=== PATIENT | male | born 1965 | race Caucasian/White ===

== ENCOUNTER 2017-01-20 12:35 | Inpatient (IN) | payer MEDICARE ==
--- NOTE | 2017-01-20 12:48 | ER Document Report ---
ED Medical Screen (RME) - General Chief Complaint: S/S of Possible Stroke Stated Complaint: STROKE SYMPTOMS Time Seen by Provider: 01/20/17 12:46 Notes: Patient states that he has had 6 previous strokes. He states that these have left him with fine motor deficits on the left side. He states starting approximately 2 days ago he has had headaches and dizziness. He is also felt that his weakness on the left has increased. he does take an aspirin per day. Denies any other chronic medical conditions except stroke, high chol. TRAVEL OUTSIDE OF THE [place] IN LAST 30 DAYS: No - Related Data Allergies/Adverse Reactions: No Known Allergies Allergy (Verified 01/20/17 12:37) Past Medical History Renal/ Medical History: Denies: Hx Peritoneal Dialysis Physical Exam - Vital signs Vitals: Temp Pulse Resp BP Pulse Ox 98.5 F 85 16 195/104 H 96 01/20/17 12:37 01/20/17 12:37 01/20/17 12:37 01/20/17 12:37 01/20/17 12:37 Course - Vital Signs Vital signs: Temp Pulse Resp BP Pulse Ox 98.5 F 85 16 195/104 H 96 01/20/17 12:37 01/20/17 12:37 01/20/17 12:37 01/20/17 12:37 01/20/17 12:37
--- NOTE | 2017-01-20 13:14 | RADIOLOGY REPORT (SQ) ---
EXAM DESCRIPTION: CT HEAD WITHOUT COMPLETED DATE/TIME: 01/20/2017 12:58 pm REASON FOR STUDY: worsening left sided weakness COMPARISON: None. TECHNIQUE: Axial images acquired through the brain without intravenous contrast. Images reviewed wi th bone, brain and subdural windows. Images stored on PACS. All CT scanners at this facility use dose modulation, iterative reconstruction, and/or weight based d osing when appropriate to reduce radiation dose to as low as reasonably achievable (ALARA). [facility]: Dose Right [facility]: CareDose [facility]: Dose Right [facility]: Teradose 4D [facility]: [employer] RADIATION DOSE: Up-to-date CT equipment and radiation dose reduction techniques were employed. CTDIv ol: 64.6 mGy. DLP: 1163 mGy-cm. mGy. LIMITATIONS: None. FINDINGS: VENTRICLES: Normal size and contour. CEREBRUM: No masses. No hemorrhage. No midline shift. No evidence for acute infarction. Normal gra y/white matter differentiation. No areas of low density in the white matter. CEREBELLUM: No masses. No hemorrhage. No alteration of density. No evidence for acute infarction. EXTRAAXIAL SPACES: No fluid collections. No masses. There appears to be a small arachnoid cyst in t he posterior fossa on the left. ORBITS AND GLOBE: No intra- or extraconal masses. Normal contour of globe without masses. CALVARIUM: No fracture. PARANASAL SINUSES: No fluid or mucosal thickening. SOFT TISSUES: No mass or hematoma. OTHER: No other significant finding. IMPRESSION: NORMAL BRAIN CT WITHOUT CONTRAST. EVIDENCE OF ACUTE STROKE: NO. COMMENT: Quality ID # [id number]: Final reports with documentation of one or more dose reduction techniques (e.g., Automated exposure control, adjustment of the mA and/or kV according to patient size, use of iterative reconstruction technique) TECHNICAL DOCUMENTATION: JOB ID: [id number] 1996 [employer]- All Rights Reserved
[2017-01-20] MEDS ORDERED: HYDRALAZINE HCL 25 MG TABLET PO ONE (13:21)
[2017-01-20 13:22] LABS: ABSOLUTE EOSINOPHILS # (AUTO) 0.1 10^3/uL (0.0-0.6); ABSOLUTE LYMPHOCYTES (AUTO) 1.4 10^3/uL (0.5-4.7); ABSOLUTE MONOCYTES (AUTO) 0.5 10^3/uL (0.1-1.4); BASOPHILS % (AUTO) 0.7 % (0-2); EOSINOPHILS % (AUTO) 2.1 % (0-6); HEMATOCRIT 48.1 % (37.9-51.0); HEMOGLOBIN 17.2 g/dL (13.5-17.0); HGB HCT DIFFERENCE 3.5; LYMPHOCYTES % (AUTO) 23.2 % (13-45); MEAN CORPUSCULAR HEMOGLOBIN 32.2 pg (27.0-33.4); MEAN CORPUSCULAR HGB CONC 35.7 g/dL (32.0-36.0); MEAN CORPUSCULAR VOLUME 90 fl (80-97); MONOCYTES % (AUTO) 7.9 % (3-13); RED BLOOD COUNT 5.34 10^6/uL (4.35-5.55); RED CELL DISTRIBUTION WIDTH 12.7 % (11.5-14.0); SEGMENTED NEUTROPHILS % (AUTO) 66.1 % (42-78)
--- NOTE | 2017-01-20 13:42 | EKG REPORT ---
SEVERITY:- NORMAL ECG - SINUS RHYTHM : Confirmed by: Holger Moreland MD 20-Jan-2017 13:41:45
[2017-01-20 13:45] LABS: ALANINE AMINOTRANSFERASE 50 U/L (21-72); ALBUMIN 4.7 g/dL (3.5-5.0); ALKALINE PHOSPHATASE 68 U/L (38-126); ANION GAP 13 (5-19); ASPARTATE AMINO TRANSFERASE 23 U/L (17-59); BILIRUBIN,DIRECT 0.4 mg/dL (0.0-0.4); BILIRUBIN,TOTAL 0.7 mg/dL (0.2-1.3); BLOOD UREA NITROGEN 10 mg/dL (7-20); CARBON DIOXIDE 25 mmol/L (22-30); CHLORIDE 105 mmol/L (98-107); CREATININE RESULT 0.94 mg/dL (0.52-1.25); GLUCOSE 102 mg/dL (75-110); POTASSIUM 4.1 mmol/L (3.6-5.0); SODIUM 142.7 mmol/L (137-145); TOTAL PROTEIN 7.4 g/dL (6.3-8.2)
--- NOTE | 2017-01-20 15:09 | ER Document Report ---
ED Neuro Symptoms/Deficit - General Chief Complaint: S/S of Possible Stroke Stated Complaint: STROKE SYMPTOMS Time Seen by Provider: 01/20/17 12:46 Mode of Arrival: Ambulatory Information source: Patient Notes: Patient is a 51-year-old male who presents to the ER today with a history of 6 strokes with residual left-sided weakness to states that he started having left- sided weakness more so than usual with numbness to his left arm and left leg 3 days ago that worsened today. Patient denies any facial droop, facial numbness , headache, blurred vision or otherwise. Patient is on cholesterol medication, baby aspirin, but no blood pressure medication. Patient presents with a blood pressure of 195/106. He denies any chest pain or shortness of breath, nausea or vomiting. TRAVEL OUTSIDE OF THE [place] IN LAST 30 DAYS: No - Related Data Allergies/Adverse Reactions: No Known Allergies Allergy (Verified 01/20/17 12:37) Home Medications: Current Home Medications Aspirin [Ecotrin] 81 mg PO DAILY 01/20/17 [History] Lovastatin [Altoprev] 20 mg PO BID 01/20/17 [History] Multivitamin [Multivitamins] 1 each PO DAILY 01/20/17 [History] Ranitidine HCl 150 mg PO BID 01/20/17 [History] Past Medical History - General Information source: Patient - Social History Smoking Status: Current Every Day Smoker Chew tobacco use (# tins/day): No Frequency of alcohol use: 2 per day Drug Abuse: None Family History: Reviewed & Not Pertinent - Past Medical History Cardiac Medical History: Reports: Hx Hypercholesterolemia Renal/ Medical History: Denies: Hx Peritoneal Dialysis GI Medical History: Reports: Hx Gastroesophageal Reflux Disease - Immunizations Hx Diphtheria, Pertussis, Tetanus Vaccination: No Review of Systems - Review of Systems Constitutional: No symptoms reported EENT: No symptoms reported Cardiovascular: No symptoms reported Respiratory: No symptoms reported Gastrointestinal: No symptoms reported Genitourinary: No symptoms reported Male Genitourinary: No symptoms reported Musculoskeletal: No symptoms reported Skin: No symptoms reported Hematologic/Lymphatic: No symptoms reported Neurological/Psychological: See HPI Physical Exam - Vital signs Vitals: Temp Pulse Resp BP Pulse Ox 98.5 F 85 16 195/104 H 96 01/20/17 12:37 01/20/17 12:37 01/20/17 12:37 01/20/17 12:37 01/20/17 12:37 - Notes Notes: PHYSICAL EXAMINATION: GENERAL: Well-appearing and in no acute distress. HEAD: Atraumatic, normocephalic. EYES: Pupils equal round and reactive to light, extraocular movements intact, sclera anicteric, conjunctiva are normal. NECK: Normal range of motion, supple without lymphadenopathy LUNGS: CTAB and equal. No wheezes rales or rhonchi. HEART: Regular rate and rhythm without murmurs EXTREMITIES: Normal range of motion, no pitting edema. No cyanosis. NEUROLOGICAL: Cranial nerves grossly intact. mildly decreased motor function to left arm and leg, no facial droop, good sensory to bilateral extremities PSYCH: Normal mood, normal affect. SKIN: Warm, Dry, normal turgor, no rashes or lesions noted Course - Re-evaluation Re-evalutation: 01/20/17 15:32 CT of the head is negative for any acute pathology, lab work is unremarkable today, patient's blood pressure has reduced to 166 systolically with oral hydralazine here in the emergency department. I did admit patient to Dr. Chavez, for further workup as he has been multiple years since patient has had an MRI, echo or ultrasound of the carotids. NIH is 0. He is not a candidate for TPA. 01/21/17 08:40 01/21/17 08:40 - Vital Signs Vital signs: Temp Pulse Resp BP Pulse Ox 98.5 F 70 20 166/108 H 100 01/20/17 12:37 01/20/17 15:06 01/20/17 15:06 01/20/17 15:06 01/20/17 15:06 - Laboratory Result Diagrams: 01/21/17 04:36 01/21/17 04:36 Laboratory results interpreted by me: 01/20/17 01/20/17 13:03 13:10 Hgb 17.2 H POC Glucose 114 H ED Alteplase Inc/Exc Criteria - Date/Time patient last known well: Date/Time: 3 days ago - Date/Time patient arrived in ED: _: 13:07 - Inclusion Criteria: 1: Patient presented to ED within 3 hours of acute ischemic stroke symptom onset ? -: No 2: Did baseline CT exclude intracranial hemorrhage and/or other risk factors? -: Yes 3: Is the age of the patient 18 years of age or greater? -: Yes : If any of the above questions are answered "NO" then stop, patient is not a candidate for Alteplase, : If all of the above questions are answered "YES" then continue with Exclusion Criteria. - Exclusion Criteria: 1: Is there evidence of intracranial hemorrhage on baseline CT? 2: Is there suspicion of subarachnoid hemorrhage (even if CT negative)? 3: Is there a history of serious head trauma, recent previous stroke or WV within 3 months? 4: Does the patient have a clinical presentation consistent with WV or post-WV pericarditis? 5: Is there history of intracranial hemorrhage? 6: On repeated measurement is Systolic BP greater than 185mmHg or Diastolic BP greater that 110 mmHg and is aggressive treatment needed to reduce blood pressure to these limits (e.g. constant infusion of an anti-hypertensive)? 7: Did the patient awake with stroke symptoms? 8: Has the patient had a lumbar puncture or an arterial puncture at a non- compressile site within 7 days? 9: With in the last 14 days did the patient have surgery or major trauma? 10: Is the patient or less than 2 weeks? 11: Was there any active bleeding or acute trauma? 12: Does the patient have intracranial neoplasm, arteriovenous malformation or aneurysm? 13: Does the patient have abnormal glucose (less than 50 or greater than 400mg/ dl)? Record glucose in Comment. 14: Patient has rapidly improving symptoms at the time Alteplase is to be Administered. 15: Does the patient have any risks for bleeding, including but not limited to: a.: Current use of Coumadin with PT greater than 15 seconds or INR greater than 1.7. b.: Current use of Pradaxa (Dabigatran). c.: Heparin administereed within the past 48 hours and PTT elevated. d.: Platelet count less than 100,000/mm. e.: Major surgery or serious trauma within 14 days. f.: Gastrointestinal or gynecological urinary bleeding within 14 days. g.: Myocardial Infarction (WV) within 3 months. : If the answer to any of the above questions is "YES" then stop, the patient is not a candidate for Alteplase. : If the answer to all of the above questions is "NO" then the patient may be eligible for the Administration of Alteplase. : If the patient is noted to have seizure activity at onset of Stroke symptoms; Consult Neurologist for further evaluation. - The patient is: -: Included and is eligible to receive Alteplase. *Initiate bed placement at higher level of care* Reviewd risks & benefits of thrombolytic therapy: I have reviewed the risks and benefits of thrombolytic therapy with the patient and/or his/her family. -: Excluded and not eligible to receive Alteplase for the above exclusions. -: Excluded and not eligible to receive Alteplase for other reasons (specify in comments): - Diagnosis of TIA: -: Patient presented with transient symptoms that are now resolved and no other neurologic findings are currently present. List symptoms in comments. -: No -: Patient is NOT a candidate for tPA. -: Yes -: ____(put name in comment) has been consulted for admission and continued evaluation of risk factor assessment. Comment: Dr. Chavez NIH Stroke Scale - NIH Stroke Scale When completed:: Protocol *: 1. NIH scale should be completed with appropriate accompanying assessment tools. *: 2. The NIH should reflect what the patient is capable of doing and should not be coached by the clinician. 1a. Level of Consciousness: 0=Alert;keenly responsive -: 1=Drowsy -: 2=Obtunded -: 3=Coma/unresponsive or reflex to noxious stimuli. 1a. Responses: 0 1b. Orientation Questions: a. What month is it? -: b. How old are you? -: 0=Answers both questions correctly. -: 1=Answers one question correctly or patient is intubated or has orotracheal trauma. -: 2=Answers neither question correctly. 1b. Responses: 0 1c. Response to commands: a. Open and close eyes? -: b. Supervisor Model Making and release hand? -: Credit is given despite weakness. Demonstration of task is permitted. Substitute command if hands cannot be used. -: 0=Performs both tasks correctly -: 1=Performs one task correctly -: 2=Performs neither task correctly 1c. Responses: 0 2. Gaze: Establish eye contact and instruct patient to "Follow my finger" -: 0=Normal -: 1=Partial gaze palsy. Gaze is abnormal in one or both eyes, but where forced deviation or total gaze paresis is not present. -: 2=Forced deviation or total gaze paresis. 2. Responses: 0 3. Visual Reyes: Sees fingers in all four quadrants. -: 0=No visual loss. -: 1=Partial hemianopsia. -: 2=Complete hemianopsia. -: 3=Bilateral hemianopsia (including Cortical blindness) 3. Responses: 0 4. Facial Movement: Instruct patient to: -: a. Show me your teeth -: b. Raise your eyebrows -: c. Close your eyes -: d. Smile -: 0=Normal symmetrical movement -: 1=Minor paralysis (flattened nasolabial fold, asymmetry on smiling). -: 2=Partial paralysis (total or near total paralysis of lower face). -: 3=Complete paralysis of upper and lower face 4. Responses: 0 5. Motor functions (left arm): Alternate sides and extend each arm with palms down (90 degrees if sitting or 45 degrees for supine). -: 0=No drift;limb holds for full 10 seconds. -: 1=Drift; limb holds but drifts down before full 10 seconds, but does not hit bed. -: 2=Some effort against gravity; limb cannot get to or maintain position. -: 3=No effort against gravity; limb falls. -: 4=No movement. -: UN=Amputation, joint fusion, explain in comments. 5. Responses (left arm): 0 5. Motor Functions (right arm): Alternate sides and extend each arm with palms down (90 degrees if sitting or 45 degrees for supine). -: 0=No drift;limb holds for full 10 seconds. -: 1=Drift; limb holds but drifts down before full 10 seconds, but does not hit bed. -: 2=Some effort against gravity; limb cannot get to or maintain position. -: 3=No effort against gravity; limb falls. -: 4=No movement. -: UN=Amputation, joint fusion, explain in comments. 5. Responses (right arm): 0 6. Motor Functions (left leg): With patient lying supine, alternate sides and extend each leg (30 degrees always while supine). -: 0=No drift, leg holds position for full 5 seconds -: 1=Drift; leg falls before full 5 seconds but does not hit bed. -: 2=Some effort against gravity, leg falls to bed but some effort against gravity. -: 3=No effort against gravity, leg falls to bed immediately. -: 4=No movement. -: UN=Amputation, joint fusion; explain in comments. 6. Responses (left leg): 0 6. Motor Functions (right leg): With patient lying supine, alternate sides and extend each leg (30 degrees always while supine). -: 0=No drift, leg holds position for full 5 seconds -: 1=Drift; leg falls before full 5 seconds but does not hit bed. -: 2=Some effort against gravity, leg falls to bed but some effort against gravity. -: 3=No effort against gravity, leg falls to bed immediately. -: 4=No movement. -: UN=Amputation, joint fusion; explain in comments. 6. Responses (right leg): 0 7. Limb Ataxia: With eyes open instruct patient to: -: a. "Touch your finger to your nose". -: b. "Touch your heel to your epps" -: 0=Absent -: 1=Present in one limb. -: 2=Present in two limbs. -: UN=Amputation or joint fusion; explain in comments. 7. Responses: 0 8. Sensory: Test sensation using pinprick or noxious stimuli. Test as many body parts as possible. -: 0=Normal;no sensory loss -: 1=Mile to moderate sensory loss (patient feels pin prick but is less sharp on affected side). -: 2=Severe or total sensory loss. 8. Responses: 0 9. Best Language: Instruct patient to: -: a. "Describe what you see in this picture." -: b. "Name the items in this picture." -: c. "Read these sentences." -: 0=No aphasia, normal -: 1=Mild to moderate aphasia. -: 2=Severe aphasia -: 3=Mute, global aphasia, no usable speech or auditory comprehension. 9. Responses: 0 10. Articulation, Dysarthia: Instruct patient to: -: "Read these words" or "Repeat these words" -: 0=Normal -: 1=Mild to moderate; patient may slur some words but can be understood without difficulty. -: 2=Severe; patients speech so slurred as to be unintelligible in the absence of dysphasia. -: UN=Intubated or other physical barrier, explain in comments. 10. Responses: 0 11. Extinction or inattention: 0=No abnormality -: 1= Visual, tactile, auditory, spatial, or personal inattention or extinction to bilateral simulation in one or the sensory modalities. -: 2=Profound francine-inattention or francine-inattention to more than one modality; does not recognize own hand. 11. Responses: 0 Total Score: 0 Discharge - Discharge Clinical Impression: Stroke-like symptoms Condition: Stable Disposition: ADMITTED INPATIENT Admitting Provider: Hospitalist Unit Admitted: Telemetry
[2017-01-20 15:11] LABS: PROTHROMBIN TIME 13.6 SEC (11.4-15.4)
[2017-01-20] MEDS ORDERED: ONDANSETRON 4 MG TAB.RAPDIS PO PRN (16:06)
[2017-01-20] MEDS ORDERED: ACETAMINOPHEN 325 MG TABLET PO PRN (16:06)
[2017-01-20] MEDS ORDERED: ASPIRIN 325 MG TABLET, ENT COATED PO ONE (16:06)
[2017-01-20] MEDS ORDERED: HYDRALAZINE HCL 50 MG TABLET PO PRN (16:15)
[2017-01-20] MEDS ORDERED: LORAZEPAM INJ 2 MG/1 ML VIAL IV PRN (16:23)
--- NOTE | 2017-01-20 16:44 | PDOC H&P ---
History of Present Illness Admission Date/PCP: 01/20/17 15:56 Patient complains of: Left-sided arm weakness. History of Present Illness: DAVEY GARDUNO is a 51 year old male presents to the emergency room with complaint of left-sided arm weakness. She states that he is trying to stop smoking. Patient states that on he noticed that he had worsening left upper extremity weakness. Patient states that he has had this symptom before when he was diagnosed with a stroke. Patient also states that he has been told in the past that he has a pinched nerve that could be causing the left arm weakness. Patient reports that he has multiple intolerances to blood pressure medication. Patient states if you put him on a blood medication he will experience side effects of that medicine. Patient states that he moved from [place] to live with his sister. Patient states that the only medication he takes is an aspirin and cholesterol medicine. Patient reports he does not have insurance and therefore needs medications that are on the $4 plan. Patient also reported that when he stands up he develops a headache and dizziness. Past Medical History Cardiac Medical History: Reports: Hyperlipidema Neurological Medical History: Reports: Ischemic CVA GI Medical History: Reports: Gastroesophageal Reflux Disease Social History Smoking Status: Current Every Day Smoker Family History Parental Family History Reviewed: Yes Children Family History Reviewed: Yes Sibling(s) Family History Reviewed.: Yes Medication/Allergy Home Medications: Aspirin [Ecotrin] 81 mg PO DAILY 01/20/17 Lovastatin [Altoprev] 20 mg PO BID 01/20/17 Multivitamin [Multivitamins] 1 each PO DAILY 01/20/17 Ranitidine HCl 150 mg PO BID 01/20/17 Allergies/Adverse Reactions: No Known Allergies Allergy (Verified 01/20/17 12:37) Review of Systems Constitutional: PRESENT: weakness Eyes: ABSENT: visual disturbances Ears: ABSENT: hearing changes Cardiovascular: ABSENT: chest pain, dyspnea on exertion, edema, orthropnea, palpitations Respiratory: ABSENT: cough, hemoptysis Gastrointestinal: ABSENT: abdominal pain, constipation, diarrhea, hematemesis, hematochezia, nausea, vomiting Genitourinary: ABSENT: dysuria, hematuria Musculoskeletal: ABSENT: joint swelling Integumentary: ABSENT: rash, wounds Neurological: PRESENT: dizziness, weakness Psychiatric: ABSENT: anxiety, depression, homidical ideation, suicidal ideation Endocrine: ABSENT: cold intolerance, heat intolerance, polydipsia, polyuria Hematologic/Lymphatic: ABSENT: easy bleeding, easy bruising Physical Exam Vital Signs: Temp Pulse Resp BP Pulse Ox 98.5 F 70 15 161/111 H 84 L 01/20/17 12:37 01/20/17 15:06 01/20/17 16:01 01/20/17 16:01 01/20/17 16:01 General appearance: PRESENT: no acute distress, well-developed, well-nourished Head exam: PRESENT: atraumatic, normocephalic Eye exam: PRESENT: conjunctiva pink, EOMI. ABSENT: scleral icterus Ear exam: PRESENT: normal external ear exam Mouth exam: PRESENT: moist, tongue midline Neck exam: ABSENT: carotid bruit, JVD, lymphadenopathy, thyromegaly Respiratory exam: PRESENT: clear to auscultation kaleb. ABSENT: rales, rhonchi, wheezes Cardiovascular exam: PRESENT: RRR. ABSENT: diastolic murmur, rubs, systolic murmur Pulses: PRESENT: normal dorsalis pedis pul Vascular exam: PRESENT: normal capillary refill GI/Abdominal exam: PRESENT: normal bowel sounds, soft. ABSENT: distended, guarding, mass, organolmegaly, rebound, tenderness Rectal exam: PRESENT: deferred Extremities exam: PRESENT: full ROM. ABSENT: calf tenderness, clubbing, pedal edema Musculoskeletal exam: PRESENT: other - Left hand with 4/5 law secretary, upper left ext strength 4/5. Neurological exam: PRESENT: alert, awake, oriented to person, oriented to place , oriented to time, oriented to situation, CN II-XII grossly intact. ABSENT: motor sensory deficit Psychiatric exam: PRESENT: appropriate affect, normal mood. ABSENT: homicidal ideation, suicidal ideation Skin exam: PRESENT: dry, intact, warm. ABSENT: cyanosis, rash Results Impressions: Head CT 01/20/17 12:46 IMPRESSION: NORMAL BRAIN CT WITHOUT CONTRAST. EVIDENCE OF ACUTE STROKE: NO. Assessment & Plan - Diagnosis (1) CVA (cerebral vascular accident) Qualifiers: CVA mechanism: unspecified Qualified Code(s): I63.9 - Cerebral infarction, unspecified Is this a current diagnosis for this admission?: Yes Plan: Concern for CVA: Most likely hypertensive if patient does have evidence of a stroke. Will obtain MRI of brain for further evaluation. Patient was given aspirin 325 and be continued on aspirin. Will continue statin. Will check lipid profile hemoglobin A1c. Will place patient on blood pressure medication. We will have nurse obtain list of side effects patient has experienced with blood pressure medicines in the past (2) Hypertensive emergency Is this a current diagnosis for this admission?: Yes Plan: We will place patient on Triamterene and hydrochlorothiazide. We will have nurse obtain blood pressure medications that patient states that he has side effects to. Will obtain MRI of brain. If patient has had old strokes in the past poorly controlled blood pressure could cause decreased perfusion to those areas and re-creates symptoms. Will monitor closely. Will check lipid profile , hemoglobin A1c. (3) Left arm weakness Is this a current diagnosis for this admission?: Yes Plan: MRI ordered. Patient does give history of degenerative spine disease. Will await results of MRI and see if symptoms improve with a pressure control. If not patient may require imaging of his cervical spine. (4) ETOH abuse Is this a current diagnosis for this admission?: Yes Plan: Pt gives history of 1-2 beers a day with more alcohol on the weekends. Will give banana bag and will write for Ativan as needed (5) Tobacco abuse Is this a current diagnosis for this admission?: Yes Plan: Patient states that he is trying to stop smoking. Patient reports that he has not smoked for 3 days. She gives history of a 2 pack per day greater than 30 years. (6) Hyperlipidemia Qualifiers: Hyperlipidemia type: unspecified Qualified Code(s): E78.5 - Hyperlipidemia , unspecified Is this a current diagnosis for this admission?: Yes Plan: Will check lipid profile. Continue statin (7) DVT prophylaxis Is this a current diagnosis for this admission?: Yes Plan: SCDs - Time Time Spent: 30 to 50 Minutes
--- NOTE | 2017-01-20 18:29 | RADIOLOGY REPORT (SQ) ---
EXAM DESCRIPTION: MRI HEAD WITHOUT COMPLETED DATE/TIME: 01/20/2017 6:13 pm REASON FOR STUDY: Concern for Stroke COMPARISON: CT brain 01/20/2017 TECHNIQUE: Multiplanar imaging includes non-contrasted T1, T2, FLAIR, and diffusion with ADC map seq uences. Images stored on PACS. LIMITATIONS: None. FINDINGS: ANATOMY: No developmental anomalies. Normal vascular flow voids. Pituitary fossa normal. CSF SPACES: Normal in size and contour. No hemorrhage. CEREBRUM: Sulci and gyri normal in size and contour. Normal white matter signal on FLAIR imaging. No evidence of hemorrhage, mass, or extraaxial fluid collection. POSTERIOR FOSSA: There are old infarcts in the left inferior cerebellar hemisphere, left superior cer ebellar hemisphere, and right medial occipital lobe, chronic in appearance. An old lacunar infarct i s present in the right thalamus. No hemorrhage. No edema, masses or mass effect. Internal auditory canals, cerebello-pontine angles, mastoids normal. DIFFUSION IMAGING: Negative for acute or sub-acute infarction. ORBITS: No masses. Globes normal. PARANASAL SINUSES: No fluid levels. Mucosa normal. OTHER: No flow signal in the left distal intracranial vertebral artery on axial images 1 through 6, l ikely from remote prior thrombosis. IMPRESSION: Multiple posterior chronic infarcts with chronic appearing occluded distal left intracra nial vertebral artery. No MR evidence of acute ischemic change EVIDENCE OF ACUTE STROKE: NO. TECHNICAL DOCUMENTATION: JOB ID: [id number] [employer]- All Rights Reserved
[2017-01-20] MEDS: NORMAL SALINE 1000 ML 1,000 ML with POTASSIUM CHLORIDE 20 MEQ, MAGNESIUM SULFATE 8 MEQ,... IV SCH ×5 (18:38)
[2017-01-21 05:07] LABS: ABSOLUTE BASOPHILS # (AUTO) 0.1 10^3/uL (0.0-0.2); ABSOLUTE EOSINOPHILS # (AUTO) 0.3 10^3/uL (0.0-0.6); ABSOLUTE LYMPHOCYTES (AUTO) 2.8 10^3/uL (0.5-4.7); ABSOLUTE MONOCYTES (AUTO) 0.7 10^3/uL (0.1-1.4); ABSOLUTE NEUT (AUTO) 4.3 10^3/uL (1.7-8.2); BASOPHILS % (AUTO) 1.2 % (0-2); EOSINOPHILS % (AUTO) 3.6 % (0-6); HEMATOCRIT 46.6 % (37.9-51.0); HEMOGLOBIN 16.2 g/dL (13.5-17.0); LYMPHOCYTES % (AUTO) 33.9 % (13-45); MEAN CORPUSCULAR HEMOGLOBIN 31.7 pg (27.0-33.4); MEAN CORPUSCULAR HGB CONC 34.8 g/dL (32.0-36.0); MEAN CORPUSCULAR VOLUME 91 fl (80-97); MONOCYTES % (AUTO) 9.1 % (3-13); RED BLOOD COUNT 5.11 10^6/uL (4.35-5.55); RED CELL DISTRIBUTION WIDTH 12.7 % (11.5-14.0); SEGMENTED NEUTROPHILS % (AUTO) 52.2 % (42-78); WHITE BLOOD COUNT 8.2 10^3/uL (4.0-10.5)
[2017-01-21 05:21] LABS: ALANINE AMINOTRANSFERASE 48 U/L (21-72); ALBUMIN 3.9 g/dL (3.5-5.0); ALKALINE PHOSPHATASE 60 U/L (38-126); ANION GAP 10 (5-19); ASPARTATE AMINO TRANSFERASE 25 U/L (17-59); BILIRUBIN,DIRECT 0.4 mg/dL (0.0-0.4); BILIRUBIN,TOTAL 0.6 mg/dL (0.2-1.3); BLOOD UREA NITROGEN 13 mg/dL (7-20); CALCIUM 9.4 mg/dL (8.4-10.2); CARBON DIOXIDE 28 mmol/L (22-30); CHLORIDE 106 mmol/L (98-107); CREATININE RESULT 1.09 mg/dL (0.52-1.25); Direct HDL 35 mg/dL (>40); GLUCOSE 93 mg/dL (75-110); POTASSIUM 4.6 mmol/L (3.6-5.0); SODIUM 144.2 mmol/L (137-145); TOTAL PROTEIN 6.3 g/dL (6.3-8.2); TRIGLYCERIDES 169 mg/dL (<150)
[2017-01-21 05:32] LABS: DIRECT LDL 110 mg/dL (<100)
[2017-01-21 05:36] LABS: VLDL CHOLESTEROL 33.8 mg/dL (10-31)
[2017-01-21 05:51] LABS: THYROID STIMULATING HORMONE 2.96 uIU/mL (0.47-4.68)
[2017-01-21] MEDS: LANSOPRAZOLE 30 MG TAB.RAP.DR PO SCH (06:12)
[2017-01-21] MEDS: CLOPIDOGREL BISULFATE 75 MG TABLET PO SCH (09:39)
[2017-01-21] MEDS: TRIAMTERENE/HYDROCHLOROTHIAZIDE 37.5-25 MG TABLET PO SCH (09:39)
[2017-01-21] MEDS ORDERED: ASPIRIN 81 MG TABLET, CHEWABLE PO SCH (10:00)
--- NOTE | 2017-01-21 11:13 | RADIOLOGY REPORT (SQ) ---
EXAM DESCRIPTION: CAROTID DOPPLER COMPLETED DATE/TIME: 01/21/2017 10:12 am REASON FOR STUDY: Concern for CVA COMPARISON: CT brain 01/20/2017 MRI brain 01/20/2017 TECHNIQUE: Grayscale ultrasound, Doppler velocity and spectra, and color Doppler images acquired of the extra-cranial carotid and vertebral arteries. Images stored on PACS. LIMITATIONS: None. FINDINGS: RIGHT CAROTID CCA Velocities: Within normal limits. ICA Velocities Peak systolic 0.50 m/s. End diastolic 0.19 m/s. Proximal ICA/CCA peak systolic ratio 1.2. Spectra normal. No significant plaque. LEFT CAROTID CCA Velocities: Within normal limits. ICA Velocities Peak systolic 0.46 m/s. End diastolic 0.21 m/s. Proximal ICA/CCA peak systolic ratio 1.4. Spectra normal. No significant plaque. VERTEBRAL ARTERIES: Antegrade flow. Normal waveforms. SUBCLAVIAN ARTERIES: Not examined OTHER: No other significant finding. IMPRESSION: NO HEMODYNAMICALLY SIGNIFICANT STENOSIS AT THE CAROTID BIFURCATIONS. ANTEGRADE PULSATILE VERTEBRAL ARTERY FLOW BILATERALLY COMMENT: Quality ID #[id number]: Velocity criteria are extrapolated from the diameter data as defined by t he Society of Radiologists in Ultrasound Consensus Conference. Radiology 2003: 229; 340-346. TECHNICAL DOCUMENTATION: JOB ID: [id number] [employer]- All Rights Reserved
--- NOTE | 2017-01-21 12:50 | XCELERA REPORT ---
[address] [address] Transthoracic Echocardiogram Report Name: DAVEY GARDUNO Age: 51 yrs Gender: Male : 1965 Patient Status: Inpatient Patient Location: [address] [place], [place] [id number] Study Date: 01/21/2017 08:34 AM Height: 70 in Weight: 205 lb BSA: 2.1 m2 Procedure: A complete two-dimensional transthoracic echocardiogram was performed (2D, M-mode, spectral and color flow Doppler). The study was technically difficult with many images being suboptimal in quality. Reason For Study: Concern for CVA Ordering Physician: HILL ALCARAZ Performed By: Dipika Kaba Interpretation Summary The left ventricular ejection fraction is normal. There is mild concentric left ventricular hypertrophy. Doppler measurements suggest pseudonormalized left ventricular relaxation, which is associated with grade II/IV or mild to moderate diastolic dysfunction The left ventricle is grossly normal size. Not all wall segments were well visualized. The right ventricular systolic function is normal. The left atrial size is normal. The right atrium is normal in size There is a trace amount of mitral regurgitation There is no mitral valve stenosis. No aortic regurgitation is present. There is no aortic valve stenosis There is a trace or physiologic amount of tricuspid regurgitation Tricuspid regurgitation jet envelope not well defined to measure RV systolic pressure accurately. The aortic root is not well visualized. The inferior vena cava appeared normal and decreased > 50% with respiration (RAP 5-10 mmHg) There is no pericardial effusion. MMode/2D Measurements & Calculations RVDd: 2.7 cm LVIDd: 5.4 cmFS: 35.0 % Ao root diam: 3.8 cm IVSd: 1.1 cm LVIDs: 3.5 cmEDV(Teich): 141.9 ml LVPWd: 1.1 cmESV(Teich): 51.5 ml Ao root area: 11.6 cm2 EF(Teich): 63.7 % LA dimension: 3.3 cm LVOT diam: 2.4 cm LVOT area: 4.4 cm2 Doppler Measurements & Calculations MV E max ab: MV P1/2t max ab: Ao V2 max: LV V1 max P.1 cm/sec 63.4 cm/sec 118.9 cm/sec 3.8 mmHg MV A max ab: MV P1/2t: 70.2 msec Ao max PG: LV V1 max: 72.7 cm/sec MVA(P1/2t): 3.1 cm2 5.7 mmHg 97.4 cm/sec MV E/A: 0.87 MV dec slope: RUSS(V,D): 3.6 cm2 264.5 cm/sec2 PA V2 max: TR max ab: 66.5 cm/sec 202.0 cm/sec PA max PG: TR max P.3 mmHg 1.8 mmHg Left Ventricle The left ventricle is grossly normal size. There is mild concentric left ventricular hypertrophy. The left ventricular ejection fraction is normal. Doppler measurements suggest pseudonormalized left ventricular relaxation, which is associated with grade II/IV or mild to moderate diastolic dysfunction. Not all wall segments were well visualized. Right Ventricle The right ventricle is borderline dilated. There is normal right ventricular wall thickness. The right ventricular systolic function is normal. Atria The right atrium is normal in size. The left atrial size is normal. Interarterial septum not well visualized and not well dopplered. Cannot comment on ASD/PFO presence. Mitral Valve The mitral valve is grossly normal. There is no mitral valve stenosis. There is a trace amount of mitral regurgitation. Aortic Valve The aortic valve is grossly normal. There is no aortic valve stenosis. No aortic regurgitation is present. Tricuspid Valve The tricuspid valve is not well visualized, but is grossly normal. There is no tricuspid stenosis. There is a trace or physiologic amount of tricuspid regurgitation. Tricuspid regurgitation jet envelope not well defined to measure RV systolic pressure accurately. Pulmonic Valve The pulmonic valve is not well visualized. Great Vessels The aortic root is not well visualized. The inferior vena cava appeared normal and decreased > 50% with respiration (RAP 5-10 mmHg). Effusions There is no pericardial effusion. Incidental Findings No definite cardiac source of CVA/TIA noted on this particular trans- thoracic study. Consider KRYSTAL if clinically indicated. May consider mobile cardiac telemetry monitoring (MCT) for ruling out transient AFIB. : HILL ALCARAZ Shyamal
[2017-01-21] MEDS ORDERED: NORMAL SALINE 1000 ML 1,000 ML IV PRN (13:24)
[2017-01-21] MEDS ORDERED: ENOXAPARIN SODIUM INJ 40 MG/0.4 ML DISP.SYRIN SUBCUT ONE (15:00)
--- NOTE | 2017-01-21 15:30 | PDOC PROGRESS REPORT ---
Subjective Progress Note for:: 01/21/17 Subjective:: Patient admitted for left-sided weakness which happened 4 years ago with his previous stoke. Patient also having dizziness which happened in the past also. Patient states that he still has the weakness but he became very dizzy when walking with PT. Physical Exam Vital Signs: Temp Pulse Resp BP Pulse Ox 98.2 F 62 12 153/93 H 94 01/21/17 11:36 01/21/17 14:00 01/21/17 12:00 01/21/17 12:33 01/21/17 12:33 Intake & Output 01/20/17 01/21/17 01/22/17 06:59 06:59 06:59 Intake Total 1560 838 Balance 1560 838 Weight 93 kg General appearance: PRESENT: no acute distress, cooperative. ABSENT: hard of hearing Head exam: PRESENT: normocephalic Eye exam: PRESENT: EOMI. ABSENT: nystagmus Mouth exam: PRESENT: moist, neck supple Teeth exam: ABSENT: poor dentation Neck exam: PRESENT: full ROM. ABSENT: lymphadenopathy, tenderness Respiratory exam: PRESENT: clear to auscultation kaleb, unlabored Cardiovascular exam: PRESENT: RRR, +S1, +S2 GI/Abdominal exam: PRESENT: normal bowel sounds, soft. ABSENT: tenderness Rectal exam: PRESENT: deferred Extremities exam: ABSENT: pedal edema, tenderness Musculoskeletal exam: PRESENT: full ROM. ABSENT: tenderness Neurological exam: PRESENT: alert, awake, oriented to person, oriented to place , oriented to time. ABSENT: ataxia - Left-sided weakness Psychiatric exam: PRESENT: normal mood Skin exam: PRESENT: intact, warm Results Laboratory Results: 01/21/17 04:36 01/21/17 04:36 01/21/17 01/21/17 01/21/17 04:36 04:36 04:36 WBC 8.2 RBC 5.11 Hgb 16.2 Hct 46.6 MCV 91 MCH 31.7 MCHC 34.8 RDW 12.7 Plt Count 208 Seg Neutrophils % 52.2 Lymphocytes % 33.9 Monocytes % 9.1 Eosinophils % 3.6 Basophils % 1.2 Absolute Neutrophils 4.3 Absolute Lymphocytes 2.8 Absolute Monocytes 0.7 Absolute Eosinophils 0.3 Absolute Basophils 0.1 Sodium 144.2 Potassium 4.6 Chloride 106 Carbon Dioxide 28 Anion Gap 10 BUN 13 Creatinine 1.09 Est GFR ( Amer) > 60 Est GFR (Non-Af Amer) > 60 Glucose 93 Calcium 9.4 Total Bilirubin 0.6 AST 25 ALT 48 Alkaline Phosphatase 60 Total Protein 6.3 Albumin 3.9 Triglycerides 169 H Cholesterol 163.70 LDL Cholesterol Direct 110 H VLDL Cholesterol 33.8 H HDL Cholesterol 35 L TSH 2.96 Free T4 1.01 Impressions: Head MRI 01/20/17 00:00 IMPRESSION: 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 No MR evidence of acute ischemic change EVIDENCE OF ACUTE STROKE: NO. Head CT 01/20/17 12:46 IMPRESSION: NORMAL BRAIN CT WITHOUT CONTRAST. EVIDENCE OF ACUTE STROKE: NO. Carotid Doppler Study 01/21/17 00:00 IMPRESSION: NO HEMODYNAMICALLY SIGNIFICANT STENOSIS AT THE CAROTID BIFURCATIONS. ANTEGRADE PULSATILE VERTEBRAL ARTERY FLOW BILATERALLY Assessment & Plan - Diagnosis (1) Stroke-like symptoms Is this a current diagnosis for this admission?: Yes Plan: Patient was sided weakness similar to what he had a previous stroke. Patient is most likely having recorded since of his focal stroke symptoms as there is no acute findings on MRI of the brain. Will change patient to high-dose aspirin and add Plavix. Patient started on DVT prophylaxis. Patient also on statin. Patient A1c is 5.3. PT and OT. (2) DVT prophylaxis Is this a current diagnosis for this admission?: Yes Plan: Patient on Lovenox. (3) ETOH abuse Is this a current diagnosis for this admission?: Yes Plan: She shows no signs of withdrawals. Will discontinue the as needed Ativan. (4) Hyperlipidemia Qualifiers: Hyperlipidemia type: unspecified Qualified Code(s): E78.5 - Hyperlipidemia , unspecified Is this a current diagnosis for this admission?: Yes Plan: Patient currently on statin. (5) Hypertensive emergency Is this a current diagnosis for this admission?: Yes Plan: Hypertensive emergency with presenting with strokelike symptoms left upper extremity weakness and dizziness. Patient blood pressure was 195/100. Patient currently on antihypertensive with systolics in the 150s which is appropriate for patient presenting with strokelike symptoms as that pressure should not be dropped too quickly. (6) Tobacco abuse Is this a current diagnosis for this admission?: Yes Plan: Patient attempted to quit nicotine when his strokelike symptoms presented. Patient will be placed on a nicotine patch. (7) Dizziness Is this a current diagnosis for this admission?: Yes Plan: Possible related to current recudescence of his stroke symptoms. Will hydrate patient and avoid benzos. Also check orthostatics. Patient carotid Doppler was unremarkable. - Time Time Spent with patient: 15-24 minutes Anticipated discharge: Home with Homehealth Within: within 48 hours
[2017-01-21] MEDS ORDERED: (PENDING PHARMACY ID) (Lovastatin [Altoprev] 20 MG) PO SCH (18:00)
[2017-01-21] MEDS: ATORVASTATIN CALCIUM 10 MG TABLET PO SCH (18:31)
[2017-01-21] MEDS: NORMAL SALINE 1000 ML 1,000 ML with POTASSIUM CHLORIDE 20 MEQ, MAGNESIUM SULFATE 8 MEQ,... IV SCH ×5 (18:41)
[2017-01-22] MEDS: LANSOPRAZOLE 30 MG TAB.RAP.DR PO SCH (05:18)
[2017-01-22 06:39] LABS: HEMATOCRIT 44.7 % (37.9-51.0); HEMOGLOBIN 15.7 g/dL (13.5-17.0); HGB HCT DIFFERENCE 2.4; MEAN CORPUSCULAR HEMOGLOBIN 31.9 pg (27.0-33.4); MEAN CORPUSCULAR HGB CONC 35.2 g/dL (32.0-36.0); MEAN CORPUSCULAR VOLUME 91 fl (80-97); RED BLOOD COUNT 4.93 10^6/uL (4.35-5.55); RED CELL DISTRIBUTION WIDTH 12.7 % (11.5-14.0); WHITE BLOOD COUNT 7.6 10^3/uL (4.0-10.5)
[2017-01-22] MEDS: ENOXAPARIN SODIUM INJ 40 MG/0.4 ML DISP.SYRIN SUBCUT SCH (09:16)
[2017-01-22] MEDS: CLOPIDOGREL BISULFATE 75 MG TABLET PO SCH (09:19)
[2017-01-22] MEDS: ATORVASTATIN CALCIUM 10 MG TABLET PO SCH ×2 (09:19→18:18)
[2017-01-22] MEDS: TRIAMTERENE/HYDROCHLOROTHIAZIDE 37.5-25 MG TABLET PO SCH (09:19)
[2017-01-22] MEDS: ASPIRIN 325 MG TABLET, ENT COATED PO SCH (09:20)
[2017-01-22] MEDS: NICOTINE 21 MG/24 HR PATCH.TD24 TD SCH (09:28)
[2017-01-22] MEDS ORDERED: ASPIRIN 81 MG TABLET, ENT COATED PO SCH (10:00)
[2017-01-22] MEDS ORDERED: MECLIZINE HCL 12.5 MG TABLET PO PRN (14:06)
[2017-01-22 16:52] LABS: APPEARANCE,URINE CLEAR; BILIRUBIN,URINE NEGATIVE (NEGATIVE); GLUCOSE, URINE NEGATIVE (NEGATIVE); KETONES,URINE NEGATIVE (NEGATIVE); LEUKOCYTE ESTERASE,URINE NEGATIVE (NEGATIVE); NITRITE,URINE NEGATIVE (NEGATIVE); PROTEIN,URINE NEGATIVE (NEGATIVE); URINE SPECIFIC GRAVITY 1.006; UROBILINOGEN,URINE NEGATIVE mg/dL (<2.0)
--- NOTE | 2017-01-22 17:35 | PDOC PROGRESS REPORT ---
Subjective Progress Note for:: 01/22/17 Subjective:: Patient admitted for left-sided weakness which happened 4 years ago with his previous stoke. Still complaining of feeling very dizzy although receiving IV hydration overnight. Patient has not work with PT yet. Patient orthostatics are negative. Will try patient on meclizine. Physical Exam Vital Signs: Temp Pulse Resp BP Pulse Ox 97.6 F 66 20 148/98 H 91 L 01/22/17 12:36 01/22/17 14:00 01/22/17 12:36 01/22/17 12:39 01/22/17 12:39 Intake & Output 01/21/17 01/22/17 01/23/17 06:59 06:59 06:59 Intake Total 1560 6578 717 Balance 1560 6578 717 Weight 93 kg 93.6 kg General appearance: PRESENT: no acute distress, cooperative, disheveled Head exam: PRESENT: normocephalic Eye exam: PRESENT: EOMI. ABSENT: scleral icterus Mouth exam: PRESENT: moist Neck exam: PRESENT: JVD Respiratory exam: PRESENT: clear to auscultation kaleb, unlabored. ABSENT: tachypnea, wheezes Cardiovascular exam: PRESENT: RRR, +S1, +S2 GI/Abdominal exam: PRESENT: normal bowel sounds, soft. ABSENT: tenderness Rectal exam: PRESENT: deferred Extremities exam: PRESENT: full ROM. ABSENT: pedal edema Musculoskeletal exam: PRESENT: normal inspection Neurological exam: PRESENT: CN II-XII grossly intact, other - left sided weakness Psychiatric exam: PRESENT: normal mood Skin exam: PRESENT: intact, warm Results Laboratory Results: 01/22/17 06:20 01/21/17 04:36 01/22/17 01/22/17 06:20 16:15 WBC 7.6 RBC 4.93 Hgb 15.7 Hct 44.7 MCV 91 MCH 31.9 MCHC 35.2 RDW 12.7 Plt Count 191 Urine Color STRAW Urine Appearance CLEAR Urine pH 6.0 Ur Specific Ambler 1.006 Urine Protein NEGATIVE Urine Glucose (UA) NEGATIVE Urine Ketones NEGATIVE Urine Blood NEGATIVE Urine Nitrite NEGATIVE Ur Leukocyte Esterase NEGATIVE Urine WBC (Auto) 0 Urine RBC (Auto) 0 Impressions: Head MRI 01/20/17 00:00 IMPRESSION: 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 No MR evidence of acute ischemic change EVIDENCE OF ACUTE STROKE: NO. Head CT 01/20/17 12:46 IMPRESSION: NORMAL BRAIN CT WITHOUT CONTRAST. EVIDENCE OF ACUTE STROKE: NO. Carotid Doppler Study 01/21/17 00:00 IMPRESSION: NO HEMODYNAMICALLY SIGNIFICANT STENOSIS AT THE CAROTID BIFURCATIONS. ANTEGRADE PULSATILE VERTEBRAL ARTERY FLOW BILATERALLY Assessment & Plan - Diagnosis (1) Stroke-like symptoms Is this a current diagnosis for this admission?: Yes Plan: Left sided weakness similar to before. Patient is most likely having recudescence of his focal stroke symptoms as there is no acute findings on MRI of the brain. Continue high-dose aspirin and add Plavix. Patient started on DVT prophylaxis. Patient also on statin. Patient A1c is 5.3. PT and OT still following. (2) DVT prophylaxis Is this a current diagnosis for this admission?: Yes Plan: Continue Lovenox. (3) ETOH abuse Is this a current diagnosis for this admission?: Yes Plan: Shows no signs of withdrawals. Will discontinue the as needed Ativan. (4) Hyperlipidemia Qualifiers: Hyperlipidemia type: unspecified Qualified Code(s): E78.5 - Hyperlipidemia , unspecified Is this a current diagnosis for this admission?: Yes Plan: Conitnue statin. (5) Hypertensive emergency Is this a current diagnosis for this admission?: Yes Plan: Hypertensive emergency with presenting with strokelike symptoms left upper extremity weakness and dizziness. Patient blood pressure was 195/100. Continue current anti hypertensive. (6) Tobacco abuse Is this a current diagnosis for this admission?: Yes Plan: Patient attempted to quit nicotine when his stroke like symptoms occurred. Patient will be placed on a nicotine patch. (7) BPV (benign positional vertigo) Qualifiers: Laterality: bilateral Qualified Code(s): H81.13 - Benign paroxysmal vertigo , bilateral Is this a current diagnosis for this admission?: Yes Plan: Patient extremely dizzy while walking or turning of his head. Patient given IV hydration overnight however did not help. Patient orthostatics were negative therefore he does not have orthostatic hypotension. Patient started on meclizine 25 mg 3 times daily to see if this helps with his symptoms. - Time Time Spent with patient: Less than 15 minutes Anticipated discharge: Home Within: within 48 hours - Dizziness improves. Patient may require assistance with obtaining his medication as patient will require Maxzide Plavix on discharge. Patient statin was affordable to him and aspirin 325 is over-the- counter.
[2017-01-22] MEDS: NORMAL SALINE 1000 ML 1,000 ML with POTASSIUM CHLORIDE 20 MEQ, MAGNESIUM SULFATE 8 MEQ,... IV SCH ×5 (18:19)
[2017-01-22] MEDS: MECLIZINE HCL 12.5 MG TABLET PO SCH (21:30)
[2017-01-23] MEDS: MECLIZINE HCL 12.5 MG TABLET PO SCH ×2 (06:04→15:05)
[2017-01-23] MEDS: LANSOPRAZOLE 30 MG TAB.RAP.DR PO SCH (06:04)
[2017-01-23] MEDS: CLOPIDOGREL BISULFATE 75 MG TABLET PO SCH (12:17)
[2017-01-23] MEDS: ATORVASTATIN CALCIUM 10 MG TABLET PO SCH (12:17)
[2017-01-23] MEDS: ASPIRIN 325 MG TABLET, ENT COATED PO SCH (12:17)
[2017-01-23] MEDS: ENOXAPARIN SODIUM INJ 40 MG/0.4 ML DISP.SYRIN SUBCUT SCH (12:18)
[2017-01-23] MEDS: TRIAMTERENE/HYDROCHLOROTHIAZIDE 37.5-25 MG TABLET PO SCH (12:18)
[2017-01-23] MEDS: NICOTINE 21 MG/24 HR PATCH.TD24 TD SCH (12:26)
[2017-01-23] MEDS ORDERED: ONDANSETRON 4 MG TAB.RAPDIS PO PRN (14:30)
[2017-01-23] MEDS: HYDRALAZINE HCL 50 MG TABLET PO PRN (17:41)
[2017-01-23] MEDS: NORMAL SALINE 1000 ML 1,000 ML with POTASSIUM CHLORIDE 20 MEQ, MAGNESIUM SULFATE 8 MEQ,... IV SCH ×5 (17:44)
--- NOTE | 2017-01-23 19:02 | PDOC PROGRESS REPORT ---
Subjective Progress Note for:: 01/23/17 Subjective:: Patient admitted for left-sided weakness which happened 4 years ago with his previous stoke. Patient states that the dizziness is improving. It takes longer for him to become dizzy while sitting up. Physical Exam Vital Signs: Temp Pulse Resp BP Pulse Ox 98.1 F 66 16 160/92 H 98 01/23/17 15:20 01/23/17 16:00 01/23/17 16:00 01/23/17 16:00 01/23/17 16:00 Intake & Output 01/22/17 01/23/17 01/24/17 06:59 06:59 06:59 Intake Total 3411 900 Balance 3411 900 Weight 93 kg General appearance: PRESENT: no acute distress Head exam: PRESENT: atraumatic, normocephalic Eye exam: PRESENT: conjunctiva pink. ABSENT: scleral icterus Ear exam: PRESENT: normal external ear exam Mouth exam: PRESENT: moist, tongue midline Neck exam: ABSENT: carotid bruit, JVD, lymphadenopathy, thyromegaly Respiratory exam: PRESENT: clear to auscultation kaleb. ABSENT: rales, rhonchi, wheezes Cardiovascular exam: PRESENT: RRR. ABSENT: diastolic murmur, rubs, systolic murmur Pulses: PRESENT: normal dorsalis pedis pul Vascular exam: PRESENT: normal capillary refill GI/Abdominal exam: PRESENT: normal bowel sounds, soft. ABSENT: distended, guarding, mass, organolmegaly, rebound, tenderness Rectal exam: PRESENT: deferred Extremities exam: PRESENT: full ROM. ABSENT: calf tenderness, clubbing, pedal edema Neurological exam: PRESENT: alert, awake, oriented to person, oriented to place , oriented to time, oriented to situation, CN II-XII grossly intact - left arm and leg weaknes, other. ABSENT: motor sensory deficit Psychiatric exam: PRESENT: appropriate affect, normal mood. ABSENT: homicidal ideation, suicidal ideation Skin exam: PRESENT: dry, intact, warm. 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 No MR evidence of acute ischemic change EVIDENCE OF ACUTE STROKE: NO. Head CT 01/20/17 12:46 IMPRESSION: NORMAL BRAIN CT WITHOUT CONTRAST. EVIDENCE OF ACUTE STROKE: NO. Carotid Doppler Study 01/21/17 00:00 IMPRESSION: NO HEMODYNAMICALLY SIGNIFICANT STENOSIS AT THE CAROTID BIFURCATIONS. ANTEGRADE PULSATILE VERTEBRAL ARTERY FLOW BILATERALLY Assessment & Plan - Diagnosis (1) Stroke-like symptoms Is this a current diagnosis for this admission?: Yes Plan: Left sided weakness similar to before. Patient is most likely having recudescence of his focal stroke symptoms as there is no acute findings on MRI of the brain. Continue high-dose aspirin and add Plavix. Patient also on statin. Patient A1c is 5.3. PT and OT still following. Patient will need assistance getting his medications. (2) DVT prophylaxis Is this a current diagnosis for this admission?: Yes Plan: Continue Lovenox. (3) ETOH abuse Is this a current diagnosis for this admission?: Yes Plan: Shows no signs of withdrawals. Continue supportive care. (4) Hyperlipidemia Qualifiers: Hyperlipidemia type: unspecified Qualified Code(s): E78.5 - Hyperlipidemia , unspecified Is this a current diagnosis for this admission?: Yes Plan: Conitnue statin. (5) Hypertensive emergency Is this a current diagnosis for this admission?: Yes Plan: Hypertensive emergency with presenting with strokelike symptoms left upper extremity weakness and dizziness. Dizziness improving. Patient blood pressure was 195/100. Continue current anti hypertensive. Patient will need assistance getting medications on discharge. (6) Tobacco abuse Is this a current diagnosis for this admission?: Yes Plan: Patient attempted to quit nicotine when his stroke like symptoms occurred. Continue nicotine patch. (7) BPV (benign positional vertigo) Qualifiers: Laterality: bilateral Qualified Code(s): H81.13 - Benign paroxysmal vertigo , bilateral Is this a current diagnosis for this admission?: Yes Plan: Patient extremely dizzy while walking or turning of his head. Patient states symptoms are better after being started on meclizine. - Time Time Spent with patient: Less than 15 minutes Anticipated discharge: Home with Homehealth Within: within 24 hours
[2017-01-24] MEDS: MECLIZINE HCL 12.5 MG TABLET PO SCH ×3 (00:08→13:27)
[2017-01-24 04:51] LABS: HEMATOCRIT 47.7 % (37.9-51.0); HEMOGLOBIN 16.9 g/dL (13.5-17.0); MEAN CORPUSCULAR HGB CONC 35.4 g/dL (32.0-36.0); MEAN CORPUSCULAR VOLUME 90 fl (80-97); RED BLOOD COUNT 5.29 10^6/uL (4.35-5.55); RED CELL DISTRIBUTION WIDTH 12.6 % (11.5-14.0)
[2017-01-24] MEDS ORDERED: LANSOPRAZOLE 30 MG TAB.RAP.DR PO SCH (06:00)
[2017-01-24] MEDS: ENOXAPARIN SODIUM INJ 40 MG/0.4 ML DISP.SYRIN SUBCUT SCH (10:08)
[2017-01-24] MEDS: TRIAMTERENE/HYDROCHLOROTHIAZIDE 37.5-25 MG TABLET PO SCH (10:12)
[2017-01-24] MEDS: CLOPIDOGREL BISULFATE 75 MG TABLET PO SCH (10:12)
[2017-01-24] MEDS: NICOTINE 21 MG/24 HR PATCH.TD24 TD SCH (10:12)
[2017-01-24] MEDS: ASPIRIN 325 MG TABLET, ENT COATED PO SCH (10:12)
[2017-01-24 13:17] VITALS: BP 154/93
[2017-01-24] MEDS: HYDRALAZINE HCL 50 MG TABLET PO PRN (13:27)
[2017-01-24] MEDS ORDERED: ATORVASTATIN CALCIUM 10 MG TABLET PO SCH (22:00)
--- NOTE | 2017-01-25 14:15 | PDOC DISCHARGE SUMMARY ---
General - Admit/Disc Date/PCP Admission Date/Primary Care Provider: 01/22/17 17:21 Discharge Date: 01/24/17 - Discharge Diagnosis (1) Stroke-like symptoms Is this a current diagnosis for this admission?: Yes (2) DVT prophylaxis Is this a current diagnosis for this admission?: Yes (3) ETOH abuse Is this a current diagnosis for this admission?: Yes (4) Hyperlipidemia Is this a current diagnosis for this admission?: Yes (5) Hypertensive emergency Is this a current diagnosis for this admission?: Yes (6) Tobacco abuse Is this a current diagnosis for this admission?: Yes (7) BPV (benign positional vertigo) Is this a current diagnosis for this admission?: Yes - Additional Information Resuscitation Status: Full Code Discharge Diet: Cardiac Discharge Activity: Activity As Tolerated, Slowly Increase Activity Home Medications: Lovastatin [Altoprev] 20 mg PO BID 01/20/17 Multivitamin [Multivitamins] 1 each PO DAILY 01/20/17 Ranitidine HCl 150 mg PO BID 01/20/17 Aspirin [Ecotrin 325 mg EC Tablet] 325 mg PO DAILY tabec 01/24/17 Clopidogrel Bisulfate [Plavix 75 mg Tablet] 75 mg PO DAILY 30 Days #30 tablet Triamterene/Hydrochlorothiazid [Maxzide-25 Tablet] 1 tab PO DAILY 30 Days #30 tablet 01/24/17 History of Present Illness Patient complains of: Left sided arm weakness History of Present Illness: DAVEY GARDUNO is a 51 year old male presents to the emergency room with complaint of left-sided arm weakness. She states that he is trying to stop smoking. Patient states that on he noticed that he had worsening left upper extremity weakness. Patient states that he has had this symptom before when he was diagnosed with a stroke. Patient also states that he has been told in the past that he has a pinched nerve that could be causing the left arm weakness. Patient reports that he has multiple intolerances to blood pressure medication. Patient states if you put him on a blood medication he will experience side effects of that medicine. Patient states that he moved from [place] to live with his sister. Patient states that the only medication he takes is an aspirin and cholesterol medicine. Patient reports he does not have insurance and therefore needs medications that are on the $4 plan. Patient also reported that when he stands up he develops a headache and dizziness. Hospital Course Hospital Course: (1) Stroke-like symptoms Patient presented with left sided weakness similar to what he had 3 years ago with his first stroke. Patient is most likely having recudescence of his focal stroke symptoms as there is no acute findings on MRI of the brain. Patient was treated with high dose statin and plavix. Patient was already on a statin and will continue on that. (2) DVT prophylaxis Patient given lovenox. (3) ETOH abuse Patient was initially given a banana bag and PRN ativan. As patient was not showing any signs of withdrawal this was discontinued. Patient was counseled on cessation. (4) Hyperlipidemia Continue on statin. (5) Hypertensive emergency Hypertensive emergency with presenting with stroke like symptoms consisting left upper extremity weakness and dizziness. Patient blood pressure was 195/ 100. Patient started on schedule and PRN anti hypertensives. (6) Tobacco abuse Patient attempted to quit nicotine when his stroke like symptoms occurred. Continue nicotine patch. It has been about a week since he last smoked. (7) BPV (benign positional vertigo) Patient extremely dizzy while walking or turning of his head. Patient states symptoms are better after being started on meclizine. Patient is able to ambulate without dizziness. He states it takes longer for him to begin feeling dizzy and that it does not last as long when it come. Physical Exam Vital Signs: Temp Pulse Resp BP Pulse Ox 97.7 F 67 16 145/93 H 98 01/24/17 11:18 01/24/17 12:00 01/24/17 12:00 01/24/17 12:00 01/24/17 12:00 Intake & Output 01/23/17 01/24/17 01/25/17 06:59 06:59 06:59 Intake Total 3411 4110 Balance 3411 4110 Weight 93 kg 93 kg General appearance: PRESENT: no acute distress, well-developed, well-nourished Head exam: PRESENT: normocephalic Eye exam: PRESENT: EOMI Mouth exam: PRESENT: neck supple Neck exam: PRESENT: full ROM. ABSENT: JVD Respiratory exam: PRESENT: clear to auscultation kaleb Cardiovascular exam: PRESENT: RRR, +S1, +S2 GI/Abdominal exam: PRESENT: normal bowel sounds, soft. 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 No MR evidence of acute ischemic change EVIDENCE OF ACUTE STROKE: NO. Head CT 01/20/17 12:46 IMPRESSION: NORMAL BRAIN CT WITHOUT CONTRAST. EVIDENCE OF ACUTE STROKE: NO. Carotid Doppler Study 01/21/17 00:00 IMPRESSION: NO HEMODYNAMICALLY SIGNIFICANT STENOSIS AT THE CAROTID BIFURCATIONS. ANTEGRADE PULSATILE VERTEBRAL ARTERY FLOW BILATERALLY Qualifiers PATEINT BEING DISCHARGED WITH ANY OF THE FOLLOWING DIAGNOSIS?: No Plan Time Spent: Less than 30 Minutes - Patient received assistance with his maxide and plavix from case management prior to discharge home.
== END 2017-01-24 14:17 | disposition home or self-care (01) | DRG 305 ==
LOC: EDBD → ER 12:35 → EH 15:56 → UNDOADMIN 15:56 → INTOOBSV 16:06 → EH 16:06 → 3N 18:25 → OBSVTOIN 01-22 17:21
DX: I16.1 Hypertensive emergency (principal); I69.354 Hemiplegia and hemiparesis following cerebral infarction affecting left non-dominant side; H81.13 Benign paroxysmal vertigo, bilateral; I10 Essential (primary) hypertension; F10.10 Alcohol abuse, uncomplicated; E78.5 Hyperlipidemia, unspecified; F17.229 Nicotine dependence, chewing tobacco, with unspecified nicotine-induced disorders; K21.9 Gastro-esophageal reflux disease without esophagitis; F17.210 Nicotine dependence, cigarettes, uncomplicated; E78.00 Pure hypercholesterolemia, unspecified; R29.818 Other symptoms and signs involving the nervous system; Z79.899 Other long term (current) drug therapy; Z79.82 Long term (current) use of aspirin
CPT/HCPCS: 36415; 70450; 70551; 80053; 80061; 81001; 82962; 83036; 84439; 84443; 85025; 85027; 85610; 85730; 93005; 93010; 93306; 93880; 99285; G8978-GP; G8979-GP; J1650; J3411; J3475; J3480; J3490; J7030

== ENCOUNTER → 2017-03-10 | Outpatient (CLI) | payer MEDICARE ==
--- NOTE | 2017-03-11 08:18 | RADIOLOGY REPORT (SQ) ---
EXAM DESCRIPTION: MRI HEAD COMBO COMPLETED DATE/TIME: 03/10/2017 5:12 pm REASON FOR STUDY: DIZZINESS R42 DIZZINESS AND GIDDINESS COMPARISON: CT brain 01/20/2017 MRI brain 01/20/2017 TECHNIQUE: Multiplanar imaging includes noncontrasted T1, T2, FLAIR, diffusion with ADC map and post gadolinium contrast T1 sequences. Images stored on PACS. CONTRAST TYPE AND DOSE: 15 mL Multihance. RENAL FUNCTION: Estimated GFR greater than 60 LIMITATIONS: None. FINDINGS: ANATOMY: No developmental anomalies. Normal vascular flow voids. Pituitary fossa normal. CSF SPACES: Normal in size and contour. No hemorrhage. CEREBRUM: No MR evidence of acute ischemic change, acute intracranial hemorrhage, mass effect, or mid line shift. There is minimal white matter disease, with punctate foci of increased signal in the left frontal alie p periventricular white matter, and an old lacunar infarct in the right thalamus. No abnormal brain parenchymal enhancement. POSTERIOR FOSSA: Chronic appearing inferior left cerebellar hemisphere infarcts are present, similar compared to 01/20/2017. No MR evidence of acute posterior fossa ischemic change, acute posterior fossa hemorrhage, mass effec t, or midline shift. No abnormal posterior fossa enhancement. DIFFUSION IMAGING: Negative for acute or subacute infarction. ORBITS: No masses. Globes normal. PARANASAL SINUSES: No fluid levels. Mucosa normal. OTHER: Tiny metallic foreign body over the right frontal scalp IMPRESSION: No acute findings Old infarcts in the left inferior cerebellar hemisphere, right thalamus, and left posterior frontal d eep periventricular white matter EVIDENCE OF ACUTE STROKE: NO. TECHNICAL DOCUMENTATION: JOB ID: [id number] [employer]- All Rights Reserved
== END ==
LOC: RAD 15:34
PROVIDERS: ATTEND Physician Assistant
DX: R42 Dizziness and giddiness (principal)
CPT/HCPCS: 82565; 70553; A9577

== ENCOUNTER → 2017-03-24 | Outpatient (CLI) | payer MEDICARE ==
--- NOTE | 2017-03-24 12:16 | RADIOLOGY REPORT (SQ) ---
EXAM DESCRIPTION: CERV SP 4 OR 5 VIEWS COMPLETED DATE/TIME: 03/24/2017 10:22 am REASON FOR STUDY: NECK PAIN M54.2 CERVICALGIA R07.89 OTHER CHEST PAIN COMPARISON: None. NUMBER OF VIEWS: Five views. TECHNIQUE: AP, lateral, obliques and odontoid radiographic images acquired of the cervical spine. LIMITATIONS: None. FINDINGS: MINERALIZATION: Normal. ALIGNMENT: Anatomic. VERTEBRAE: Vertebral bodies of normal height. DISCS: No significant osteophytes or sclerosis. Disc height maintained. FORAMINA: No osteophytes or foraminal narrowing. LATERAL AND POSTERIOR ELEMENTS: Facets, lateral masses and spinous processes without significant find ings. HARDWARE: None in the spine. SOFT TISSUES: No masses or calcifications. Lung apices clear. OTHER: No other significant finding. IMPRESSION: NO SIGNIFICANT RADIOGRAPHIC FINDING IN THE CERVICAL SPINE. TECHNICAL DOCUMENTATION: JOB ID: [id number] [id number] 2010 [employer]- All Rights Reserved
--- NOTE | 2017-03-24 12:17 | RADIOLOGY REPORT (SQ) ---
EXAM DESCRIPTION: CHEST PA/LAT COMPLETED DATE/TIME: 03/24/2017 10:23 am REASON FOR STUDY: CHEST WALL PAIN COMPARISON: None. EXAM PARAMETERS: NUMBER OF VIEWS: two views TECHNIQUE: Digital Frontal and Lateral radiographic views of the chest acquired. RADIATION DOSE: NA LIMITATIONS: none FINDINGS: LUNGS AND PLEURA: No opacities, masses or pneumothorax. No pleural effusion. MEDIASTINUM AND HILAR STRUCTURES: No masses or contour abnormalities. HEART AND VASCULAR STRUCTURES: Heart normal size. No evidence for failure. BONES: No acute findings. HARDWARE: None in the chest. OTHER: No other significant finding. IMPRESSION: NO SIGNIFICANT RADIOGRAPHIC FINDING IN THE CHEST. TECHNICAL DOCUMENTATION: JOB ID: [id number] [place]-[id number] 2010 [employer]- All Rights Reserved
== END ==
LOC: RAD 09:59
PROVIDERS: ATTEND Physician Assistant
DX: M54.2 Cervicalgia (principal); R07.89 Other chest pain
CPT/HCPCS: 71020; 72050

== ENCOUNTER → 2017-04-30 | Outpatient (CLI) | payer MEDICARE ==
--- NOTE | 2017-04-30 14:16 | RADIOLOGY REPORT (SQ) ---
EXAM DESCRIPTION: MRI CERVICAL SPINE WITHOUT COMPLETED DATE/TIME: 04/30/2017 12:02 pm REASON FOR STUDY: M54.12 RADICULOPATHY, CERVICAL REGION I63.9 CEREBRAL INFARCTION, UNSPECIFIE M54.12 RADICULOPATHY, CERVICAL REGION I63.9 CEREBRAL INFARCTION, UNSPECIFIED COMPARISON: None. TECHNIQUE: Sagittal and Axial imaging includes T1, T2, STIR and gradient echo sequences. LIMITATIONS: None. FINDINGS: ALIGNMENT: Normal. VERTEBRAE: Intact. BONE MARROW: Normal. No marrow replacement or reactive changes. DISCS: Normal. No significant abnormal signal or loss of height. HARDWARE: None in the spine. CORD AND BASE OF BRAIN: Normal in size and signal intensity. SOFT TISSUES: No soft tissue masses. C1-C2: No significant spinal stenosis. C2-C3: No significant spinal stenosis or exit foraminal stenosis. C3-C4: No significant spinal stenosis or exit foraminal stenosis. C4-C5: No significant spinal stenosis or exit foraminal stenosis. C5-C6: Disc osteophyte complex asymmetric right. Moderate narrowing of the exit foramina right great er than left. Compression of the anterior thecal sac with milder moderate central canal stenosis. C6-C7: No significant spinal stenosis or exit foraminal stenosis. C7-T1: No significant spinal stenosis or exit foraminal stenosis. UPPER THORACIC: Incompletely imaged. No significant spinal stenosis or exit foraminal stenosis. OTHER: No other significant finding. IMPRESSION: C5-6 disc osteophyte complex resulting in moderate narrowing of the exit foramina right greater than left and milder moderate central canal stenosis. TECHNICAL DOCUMENTATION: JOB ID: [id number] [employer]- All Rights Reserved
== END ==
LOC: RAD 11:29
PROVIDERS: ATTEND Specialist
DX: M54.12 Radiculopathy, cervical region (principal); I63.9 Cerebral infarction, unspecified
CPT/HCPCS: 72141